=== PATIENT | male | born 1975 | race Caucasian/White ===

== ENCOUNTER 2019-02-13 11:44 | Emergency (ER) | payer BC ==
[2019-02-13 11:52] VITALS: RESP 18; TEMP 98.6
[2019-02-13] MEDS ORDERED: KETOROLAC 60 MG/2 ML VIAL IM STA (12:09)
--- NOTE | 2019-02-13 12:12 | ED ---
General Adult HPI - General Chief complaint: Extremity Injury, Upper Stated complaint: Shoulder Injury Time Seen by Provider: 02/13/19 11:55 Source: patient, family, RN notes reviewed Mode of arrival: ambulatory Limitations: no limitations - History of Present Illness Initial comments: Patient is a pleasant 43-year-old male presenting to the emergency Department with complaints of right shoulder discomfort. Onset of symptoms was less than an hour ago. Patient was opening a cupboard when he cut fell down towards him. Patient quickly moved her shoulder and felt a pop in the back of the shoulder. Patient has had discomfort since that time. Discomfort is greatly increased with movement. No history of chronic shoulder problems in the past. No other area of injury. - Related Data Home Medications Medication Instructions Recorded Confirmed Escitalopram [Lexapro] 20 mg PO HS 02/13/19 02/13/19 Ibuprofen [Advil] 400 mg PO Q8H PRN 02/13/19 02/13/19 Previous Rx's Medication Instructions Recorded Cyclobenzaprine [Flexeril] 10 mg PO TID PRN #12 tablet 02/13/19 Ibuprofen [Motrin] 600 mg PO Q6HR PRN #20 tab 02/13/19 Allergies Allergy/AdvReac Type Severity Reaction Status Date / Time Penicillins Allergy Rash/Hives Verified 02/13/19 12:29 Review of Systems ROS Statement: Those systems with pertinent positive or pertinent negative responses have been documented in the HPI. ROS Other: All systems not noted in ROS Statement are negative. Constitutional: Denies: fever Eyes: Denies: eye pain ENT: Denies: ear pain Respiratory: Denies: cough, dyspnea Cardiovascular: Denies: chest pain Endocrine: Denies: fatigue Gastrointestinal: Denies: abdominal pain Genitourinary: Denies: dysuria Musculoskeletal: Reports: as per HPI Skin: Denies: lesions Neurological: Denies: weakness Past Medical History Past Medical History: No Reported History History of Any Multi-Drug Resistant Organisms: None Reported Past Surgical History: Orthopedic Surgery Additional Past Surgical History / Comment(s): right hand surgery, r knee Past Psychological History: Depression Smoking Status: Never smoker Past Alcohol Use History: Occasional Past Drug Use History: None Reported General Exam Limitations: no limitations General appearance: alert, in no apparent distress Head exam: Present: atraumatic Eye exam: Present: normal appearance Neck exam: Present: normal inspection. Absent: tenderness Respiratory exam: Present: normal lung sounds bilaterally Cardiovascular Exam: Present: regular rate, normal rhythm Expanded Peripheral pulses: 2+: Radial (R) GI/Abdominal exam: Present: soft. Absent: tenderness Extremities exam: Present: tenderness (Right posterior shoulder with mild tenderness to palpation. Limited active range of motion secondary to discomfort. Full passive range of motion without discomfort. Distally the extremity is neurovascular intact. Pulses intact. Cap refill less than 2 seconds. Sensation intact. Strength intact.) Neurological exam: Present: alert. Absent: motor sensory deficit Psychiatric exam: Present: normal affect, normal mood Skin exam: Present: normal color Course Vital Signs 02/13/19 11:49 Temperature 98.6 F Pulse Rate 83 Respiratory 18 Rate Blood Pressure 148/87 O2 Sat by Pulse 97 Oximetry Medical Decision Making - Medical Decision Making Patient reevaluated. Patient and family updated. Disposition Clinical Impression: Shoulder injury Disposition: HOME SELF-CARE Condition: Stable Instructions (If sedation given, give patient instructions): Rotator Cuff In jury (ED), Shoulder Sprain (ED) Additional Instructions: Please follow-up with primary care physician and orthopedics in the next couple days for recheck. If symptoms continue you may need MRI in the future or physical therapy. Continue Motrin. Return for arm weakness, difficulty breathing, worsening or changing symptoms or other concerns. Prescriptions have been sent to [facility] on . Prescriptions: Cyclobenzaprine [Flexeril] 10 mg PO TID PRN #12 tablet PRN Reason: Pain Ibuprofen [Motrin] 600 mg PO Q6HR PRN #20 tab PRN Reason: Pain Is patient prescribed a controlled substance at d/c from ED?: No Referrals: Mariza Fox DO [Primary Care Provider] - 1-2 days Carlin Lomeli DO [Doctor of Osteopathic Medicine] - 1-2 days Time of Disposition: 12:51
--- NOTE | 2019-02-13 12:25 | XR ---
EXAMINATION TYPE: XR shoulder complete RT , 3 VIEWS DATE OF EXAM ORDERED: 02/13/2019 HISTORY: pain. COMPARISON: None. FINDINGS: No fracture, dislocation or other acute osseous lesion is seen. IMPRESSION: NO ACUTE OSSEOUS LESION.
[2019-02-13 13:04] VITALS: BP 128/91; PULSE 78
== END 2019-02-13 13:10 | disposition home or self-care (01) ==
LOC: EC 11:44
DX: S49.91XA Unspecified injury of right shoulder and upper arm, initial encounter (principal); F32.9 Major depressive disorder, single episode, unspecified; Z79.899 Other long term (current) drug therapy; Z88.0 Allergy status to penicillin; X50.9XXA Other and unspecified overexertion or strenuous movements or postures, initial encounter
CPT/HCPCS: 73030; 99283; J1885

== ENCOUNTER 2020-04-20 11:00 | Day surgery (SDC) | payer BC, OTHER ==
[2020-04-18 17:22] VITALS: BMI 27.2
[~2020-04-20 11:00] MED LIST: LACTATED RINGERS 1,000 ML IV SCH; LIDOCAINE 1% (10MG/ML) FOR IV START INTRADERMA PRN
[2020-04-20 11:43] VITALS: RESP 16; TEMP 98
[2020-04-20] MEDS ORDERED: PROPOFOL 10 MG/ML 20 ML VIAL IV ONE (12:45)
[2020-04-20] MEDS ORDERED: LIDOCAINE 1% INJ 10MG/ML (20 ML MDV) ONE (12:45)
--- NOTE | 2020-04-20 12:49 | P.GSHP ---
History of Present Illness H&P Date: 04/20/20 Chief Complaint: GERD Is a 45-year-old male with history of GERD. Patient safe for EGD. He states that he may have vomited some blood recently. Past Medical History Past Medical History: GERD/Reflux Additional Past Medical History / Comment(s): heartburn & epigastric pain, sometimes vomits in am, sometimes has blood flecks in vomit, anemia, polycythemia History of Any Multi-Drug Resistant Organisms: None Reported Past Surgical History: Orthopedic Surgery Additional Past Surgical History / Comment(s): right hand surgery, r knee, right rotator cuff & labrum repair Past Anesthesia/Blood Transfusion Reactions: No Reported Reaction Smoking Status: Never smoker - Past Family History Mother Family Medical History: No Reported History Medications and Allergies Home Medications Medication Instructions Recorded Confirmed Type Esomeprazole Magnesium [NexIUM] 40 mg PO DAILY 04/18/20 04/20/20 History Ferrous Sulfate [Feosol] 325 mg PO BID 04/18/20 04/20/20 History Sucralfate [Carafate] 1 gm PO TID 04/18/20 04/20/20 History Allergies Allergy/AdvReac Type Severity Reaction Status Date / Time Penicillins Allergy Rash/Hives Verified 04/20/20 11:37 Surgical - Exam Vital Signs Temp Pulse Resp BP Pulse Ox 98 F 78 16 133/78 98 04/20/20 11:42 04/20/20 11:42 04/20/20 11:42 04/20/20 11:42 04/20/20 11:42 - General well developed, well nourished - Eyes PERRL - ENT normal pinna - Neck no masses - Respiratory normal expansion - Cardiovascular Rhythm: regular - Abdomen Abdomen: soft, non tender Assessment and Plan Assessment: GERD. We'll perform EGD.
--- NOTE | 2020-04-20 13:04 | P.OP ---
Date of Procedure: 04/20/20 Preoperative Diagnosis: GERD Postoperative Diagnosis: Mild esophagitis Small sliding hiatal hernia Procedure(s) Performed: EGD Anesthesia: MAC Surgeon: Man Santacruz Pathology: other (Esophagus) Condition: stable Disposition: PACU Description of Procedure: The patient's placed on the endoscopy table in the lateral position. He received IV sedation. The gastroscope placed oropharynx passed in the esophagus and stomach. Scope was then placed through the pylorus. First and second portion of the duodenum appeared normal. Scope was then brought back the antrum this is mildly inflamed. A biopsies performed. The scope was unretroflexed. The remainder of the stomach appeared normal. The scope was then retroflexed and the patient a small sliding hiatal hernia. The GE junction was at 40 cm. The distal esophagus appeared mildly inflamed a biopsies performed. The proximal esophagus appeared normal. Scope was withdrawn for patient.
[2020-04-20 13:21] VITALS: BP 125/61; PULSE 70
== END 2020-04-20 13:35 | disposition home or self-care (01) ==
LOC: ORWHC2ENDO 11:00
PROVIDERS: ATTEND Surgery
DX: K21.00 Gastro-esophageal reflux disease with esophagitis, without bleeding (principal); K44.9 Diaphragmatic hernia without obstruction or gangrene; D64.9 Anemia, unspecified; D75.1 Secondary polycythemia; Z87.19 Personal history of other diseases of the digestive system; Z98.890 Other specified postprocedural states; Z87.39 Personal history of other diseases of the musculoskeletal system and connective tissue; Z79.899 Other long term (current) drug therapy; Z88.0 Allergy status to penicillin
CPT/HCPCS: 88305; 43239; J2001; J2704

== ENCOUNTER 2022-01-30 08:32 | Day surgery (SDC) | payer BC, OTHER ==
[2022-01-30 09:32] VITALS: RESP 16; TEMP 96.9
[2022-01-30] MEDS ORDERED: LIDOCAINE 2% INJ 20 MG/ML (2 ML VIAL) ONE (10:00)
[2022-01-30] MEDS ORDERED: PROPOFOL 10 MG/ML 20 ML VIAL IV ONE (10:00)
--- NOTE | 2022-01-30 10:17 | P.PCN ---
Date of Procedure: 01/30/22 Procedure(s) Performed: BRIEF HISTORY: Patient is a 46-year-old pleasant white male scheduled for an elective colonoscopy as a part of evaluation of prior history of colon polyps. His last colonoscopy was 15 years ago. Has family history of colon cancer in his mother at age 60 and maternal grandfather at age 65. PROCEDURE PERFORMED: Colonoscopy. PREOPERATIVE DIAGNOSIS: History of colon polyps and family history of colon cancer. IV sedation per Anesthesia. PROCEDURE: After informed consent was obtained, the patient, was brought into the endoscopy unit. IV sedation was administered by Anesthesia under continuous monitoring. Digital rectal examination was normal. Initially the Olympus CF-160 flexible video colonoscope was then inserted in the rectum, gradually advanced into the cecum without any difficulty. Careful examination was performed as the scope was gradually being withdrawn. Ileocecal valve and the appendiceal orifice were visualized and appeared normal. Prep was excellent. Mucosa of the cecum, ascending colon, transverse colon, descending colon, sigmoid colon, and rectum appeared normal. Retroflexion was performed in the rectum and no lesions were seen. The patient tolerated the procedure well. IMPRESSION: Normal-appearing colon from rectum to cecum with no evidence of colorectal neoplasia . RECOMMENDATIONS: Findings of this examination were discussed with the patient as well as his family. He was advised to have a repeat screening colonoscopy every 5 years because of the family history of colon cancer.
[2022-01-30 10:38] VITALS: BP 116/70; PULSE 59
== END 2022-01-30 10:57 | disposition home or self-care (01) ==
LOC: ORWHC2ENDO 08:32
PROVIDERS: ATTEND Internal Medicine Gastroenterology
DX: Z12.11 Encounter for screening for malignant neoplasm of colon (principal); K92.2 Gastrointestinal hemorrhage, unspecified; K21.9 Gastro-esophageal reflux disease without esophagitis; F32.A Depression, unspecified; Z80.0 Family history of malignant neoplasm of digestive organs; Z88.0 Allergy status to penicillin; Z79.1 Long term (current) use of non-steroidal anti-inflammatories (NSAID); Z86.010 Personal history of colon polyps
CPT/HCPCS: 45378; J2704; J2001